=== PATIENT | female | born 1990 | race Caucasian/White ===

== ENCOUNTER 2019-04-25 11:16 | Emergency (ER) | payer OTHER ==
--- NOTE | 2019-04-25 11:27 | ER Report ---
History and Physical Time Seen By MD: 11:27 Hx. of Stated Complaint: patient reports a sudden onset of lower back pain at 0830 this morning. HPI/ROS CHIEF COMPLAINT: Low back pain HISTORY OF PRESENT ILLNESS: 28-year-old female patient presents to emergency room with complaint of low back pain. Patient states this pain started this morning. She states that she gotten up out of bed, got up stairs and that time she got in the kitchen she had the sudden onset of pain. She states that Dr. to her knee. She states she was able to get into a chair after a while. She did apply some ice. States pain seems to be worsening throughout the day. She states she has no numbness or tingling. She denies any saddle paresthesia, any loss of bowel or bladder control. Patient states pain seems radiate down the right leg and that seems to worsen the left leg. Although does have some radiation down left leg as well. Patient states she is not taking any medication for this. Patient states she does have a history of chronic back pain. She states it started when she is about 14 years old. She denies any injury to the low back. REVIEW OF SYSTEMS: Respiratory: No cough, no dyspnea. Cardiovascular: No chest pain, no palpitations. Gastrointestinal: No vomiting, no abdominal pain. Musculoskeletal: As noted above Allergies: Coded Allergies: hydroxyzine (Verified Allergy, Severe, 04/25/19) adhesive tape (Verified Allergy, Intermediate, 04/25/19) amoxicillin (Verified Allergy, Intermediate, 04/25/19) Home Meds Active Scripts Cyclobenzaprine Hcl (CYCLOBENZAPRINE HCL) 10 Mg Tablet, 10 MG PO TID PRN for MUSCLE SPASMS, #15 TAB Prov:CRISTI NICOLE 04/25/19 Ketorolac Tromethamine (KETOROLAC TROMETHAMINE) 10 Mg Tab, 10 MG PO Q6H, #20 TAB Prov:CRISTI NICOLE 04/25/19 Past Medical/Surgical History Patient has a past medical history of back pain, depression. Patient has no pertinent surgical history. Reviewed Nurses Notes: Yes Constitutional Vital Sign - Last 24 Hours 04/25/19 04/25/19 04/25/19 04/25/19 11:24 11:24 11:30 11:46 Temp 97.6 Pulse 84 77 Resp 24 B/P (MAP) 139/90 139/90 (106) 136/90 (105) Pulse Ox 96 96 O2 Delivery Room Air 04/25/19 04/25/19 04/25/19 04/25/19 12:16 12:46 13:09 13:14 Pulse 75 74 B/P (MAP) 110/62 (78) Pulse Ox 89 81 92 04/25/19 13:44 Pulse 73 Pulse Ox 94 Physical Exam General Appearance: The patient is alert, has no immediate need for airway protection and no current signs of toxicity. Respiratory: Chest is non tender, lungs are clear to auscultation. Cardiac: regular rate and rhythm Gastrointestinal: Abdomen is soft and non tender, no masses, bowel sounds normal. Musculoskeletal: Neck: Neck is supple and non tender. Back: Patient does have tenderness to the lumbar spine, there is no obvious bruising, no deformity. Patient did have some pain that radiated around the right hip. Extremities have full range of motion and are non tender. Skin: No rashes or lesions. DIFFERENTIAL DIAGNOSIS: After history and physical exam differential diagnosis was considered for muscle strain, contusion, fracture. Medical Decision Making EKG/Imaging Imaging COMPARISONS: None. ADDITIONAL PERTINENT HISTORY: Back pain with no history of injury. FINDINGS: Vertebral body heights and alignments: Negative. Vertebral bodies: Mild anteriorly directed osteophytes at L3-L4. Disc spaces: Negative. Visualized bony pelvis: Negative. Surrounding soft tissues: Negative. IMPRESSION: 1. Mild spondylitic change involving the lumbar spine. 2. No acute appearing bony abnormalities. Report Dictated By: Keith Canales MD at 04/25/2019 1:31 PM Report E-Signed By: Keith Canales MD at 04/25/2019 1:32 PM ED Course/Re-evaluation ED Course presents to emergency room with complaint of low back pain. Patient states this pain started this morning. She states that she gotten up out of bed, got up stairs and that time she got in the kitchen she had the sudden onset of pain. She states that Dr. to her knee. She states she was able to get into a chair after a while. She did apply some ice. States pain seems to be worsening throughout the day. She states she has no numbness or tingling. She denies any saddle paresthesia, any loss of bowel or bladder control. Patient states pain seems radiate down the right leg and that seems to worsen the left leg. Although does have some radiation down left leg as well. Patient states she is not taking any medication for this. Patient states she does have a history of chronic back pain. She states it started when she is about 14 years old. She denies any injury to the low back. Decision to Disposition Date: Apr 25, 2019 Decision to Disposition Time: 13:42 Depart Departure Latest Vital Signs Vital Signs Date Time Temp Pulse Resp B/P (MAP) Pulse Ox O2 Delivery O2 Flow Rate FiO2 04/25/19 13:44 73 94 04/25/19 13:09 110/62 (78) 04/25/19 11:24 97.6 24 Room Air Impression: Primary Impression: Lumbar strain Condition: Improved Disposition: HOME OR SELF-CARE New Scripts Cyclobenzaprine Hcl (CYCLOBENZAPRINE HCL) 10 Mg Tablet 10 MG PO TID PRN for MUSCLE SPASMS, #15 TAB Prov: CRISTI NICOLE 04/25/19 Ketorolac Tromethamine (KETOROLAC TROMETHAMINE) 10 Mg Tab 10 MG PO Q6H, #20 TAB Prov: CRISTI NICOLE 04/25/19 Patient Instructions: Low Back Strain (ED) Additional Instructions: Limit activity by pain. Alternate ice and heat to the back. No heavy lifting. Get plenty of rest. Follow up with your primary care provider in the next week. Return to the ER if condition worsens. Take medication as directed. Problem Qualifiers Primary Impression: Lumbar strain Encounter type: initial encounter Qualified Codes: S39.012A - Strain of muscle, fascia and tendon of lower back, initial encounter CRISTI NICOLE Apr 25, 2019 11:27
[2019-04-25] MEDS ORDERED: ORPHENADRINE 60MG/2ML INJ IM ONE ×2 (11:40→11:45)
[2019-04-25] MEDS ORDERED: KETOROLAC 30 MG/ML VIAL IM ONE (11:40)
[2019-04-25] MEDS ORDERED: KETOROLAC 60 MG/2 ML VIAL IM ONE (11:45)
[2019-04-25 13:09] VITALS: BP 110/62
--- NOTE | 2019-04-25 13:36 | RADIOLOGY IMAGING REPORT ---
FACILITY: [facility] - [place] PATIENT NAME: Jessie Aguero : 1990 MR: [id number] V: [id number] EXAM DATE: ORDERING PHYSICIAN: CRISTI NICOLE TECHNOLOGIST: Location: [facility] [place] Patient: Jessie Aguero : 1990 Visit/Account:[id number] Date of Sevice: 04/25/2019 Procedures COMPARISONS: None. ADDITIONAL PERTINENT HISTORY: Back pain with no history of injury. FINDINGS: Vertebral body heights and alignments: Negative. Vertebral bodies: Mild anteriorly directed osteophytes at L3-L4. Disc spaces: Negative. Visualized bony pelvis: Negative. Surrounding soft tissues: Negative. IMPRESSION: 1. Mild spondylitic change involving the lumbar spine. 2. No acute appearing bony abnormalities. Report Dictated By: Keith Canales MD at 04/25/2019 1:31 PM Report E-Signed By: Keith Canales MD at 04/25/2019 1:32 PM WSN:[id number]
[2019-04-25] MEDS ORDERED: CYCL10TA29 PO (13:43)
[2019-04-25] MEDS ORDERED: KET10 PO (13:43)
== END 2019-04-25 13:50 | disposition home or self-care (01) ==
LOC: ER 11:24
DX: S39.012A Strain of muscle, fascia and tendon of lower back, initial encounter (principal)
CPT/HCPCS: 72120; 96372; 99283; J1885; J2360